=== PATIENT | female | born 1970 | race Hispanic/Latino ===

== ENCOUNTER 2020-04-03 23:31 | Emergency (ER) | payer SELFPAY ==
[~2020-04-03] VITALS: Ht 157.5 cm; Wt 145.1 kg
[2020-04-03] MEDS ORDERED: ONDANSETRON HCL 4 MG ORAL DISINTEGRATING TAB PO ONE (23:45)
[2020-04-03] MEDS ORDERED: ACETAMINOPHEN 325 MG TAB PO ONE (23:45)
--- NOTE | 2020-04-04 00:14 | Emergency Department Note ---
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 Historian: Patient Arrival Mode: Car Onset (how long ago): day(s) (7) Location: CHEST Quality: COUGH, HURTS TO BREATH, FEVER, CHILLS Severity: moderate Onset quality: gradual Duration (how long): day(s) (7) Timing of current episode: constant Progression: unchanged Context: Reports recent illness (COUGH, FEVER, CHILLS) Relieving factors: none Exacerbating factors: none Associated symptoms: Reports cough, Reports fever/chills Treatments prior to arrival: none Past Medical/Family History Physician Review I have reviewed the patient's past medical and family history. Any updates have been documented here. Past Medical History Recent Fever: Yes Clinical Suspicion of Infectio: Yes New/Unexplained Change in Ment: No Past Medical History: None Past Surgical History: Hysterectomy Social History Smoking Cessation: Never Smoker Alcohol Use: None Any Illegal Drug Use: No Review of Systems Review of Systems Constitutional: Reports as per HPI EENTM: Reports no symptoms Cardiovascular: Reports no symptoms Respiratory: Reports as per HPI Gastrointestinal: Reports no symptoms Genitourinary: Reports no symptoms Musculoskeletal: Reports no symptoms Integumentary: Reports no symptoms Neurological: Reports no symptoms Psychological: Reports no symptoms Endocrine: Reports no symptoms Hematological/Lymphatic: Reports no symptoms Physical Exam Related Data Allergies: Coded Allergies: No Known Allergies (Unverified , 04/03/20) Triage Vital Signs Vital Signs Date Time Temp Pulse Resp B/P (MAP) Pulse Ox O2 Delivery O2 Flow Rate FiO2 04/03/20 23:39 102.6 87 24 188/88 94 Room Air Vital signs reviewed: Yes Physical Exam CONSTITUTIONAL Constitutional: Present well-developed, Present well-nourished HENT HENT: Present normocephalic, Present atraumatic, Present oropharynx clear/moist, Present nose normal HENT L/R: Present left ext ear normal, Present right ext ear normal EYES Eyes: Reports PERRL, Reports conjunctivae normal NECK Neck: Present ROM normal PULMONARY Pulmonary: Present effort normal, Present rhonchi (FAINT AT BASES BILATERAL) CARDIOVASCULAR Cardiovascular: Present regular rhythm, Present heart sounds normal, Present capillary refill normal, Present normal rate GASTROINTESTINAL Abdominal: Present soft, Present nontender, Present bowel sounds normal GENITOURINARY Genitourinary: Present exam deferred SKIN Skin: Present warm, Present dry MUSCULOSKELETAL Musculoskeletal: Present ROM normal NEUROLOGICAL Neurological: Present alert, Present oriented x 3, Present no gross motor or sensory deficits PSYCHOLOGICAL Psychological: Present mood/affect normal, Present judgement normal Results Imaging Imaging results reviewed: Yes Impressions EXAMINATION: CHEST SINGLE (PORTABLE) INDICATION: Cough, fever COMPARISON: None FINDINGS: TUBES and LINES: None. LUNGS: Normal lung volumes. Patchy bilateral mid to lower lung haziness. PLEURA: No pleural effusion or pneumothorax. HEART AND MEDIASTINUM: The cardiomediastinal silhouette is unremarkable. BONES AND SOFT TISSUES: No acute osseous lesion. Soft tissues are unremarkable. UPPER ABDOMEN: No free air under the diaphragm. IMPRESSION: Findings compatible with multifocal viral pneumonia. Signed by: Carlton Chester DO on 04/04/2020 12:38 AM Assessment & Plan Medical Decision Making MDM PT WITH COVID SYMPTOMS CXR ORDERED TO EVAL FOR PNEUMONIA TYLENOL 975 MG PO ORDERED PT WITH PRESUMED COVID 19 DISCHARGED WITH [facility], INSTRUCTED ON 14 DAY SELF QUARANTINE, SLEEPING STOMACH OR SIDES BUT NOT ON BACK Reassessment Reassessment time: 01:49 Reassessment TEMP 99.1. PT FEELS BETTER, OXYGEN SATURATION 96% ON ROOM AIR, NO RESPIRATORY DISTRESS AT THIS TIME Assessment & Plan Final Impression: (1) COVID-19 (2) Viral pneumonia Depart Disposition: HOME, SELF-CARE Last Vital Signs Date Time Temp Pulse Resp B/P (MAP) Pulse Ox O2 Delivery O2 Flow Rate FiO2 04/03/20 23:39 102.6 87 24 188/88 94 Room Air Medications in the ED Ondansetron HCl 4 mg ONCE ONCE PO Last administered on 04/03/20at 23:51; Admin Dose 4 MG; Start 04/03/20 at 23:45; Stop 04/04/20 at 00:06; Status DC Acetaminophen 975 mg ONCE ONCE PO Last administered on 04/03/20at 23:51; Admin Dose 975 MG; Start 04/03/20 at 23:45; Stop 04/04/20 at 00:06; Status DC YOSELYN WRIGHT MD Apr 04, 2020 00:14
--- NOTE | 2020-04-04 00:42 | Diagnostic Imaging Report ---
EXAMINATION: CHEST SINGLE (PORTABLE) INDICATION: Cough, fever COMPARISON: None FINDINGS: TUBES and LINES: None. LUNGS: Normal lung volumes. Patchy bilateral mid to lower lung haziness. PLEURA: No pleural effusion or pneumothorax. HEART AND MEDIASTINUM: The cardiomediastinal silhouette is unremarkable. BONES AND SOFT TISSUES: No acute osseous lesion. Soft tissues are unremarkable. UPPER ABDOMEN: No free air under the diaphragm. IMPRESSION: Findings compatible with multifocal viral pneumonia. Signed by: Carlton Chester DO on 04/04/2020 12:38 AM
== END 2020-04-04 01:50 | disposition home or self-care (01) ==
LOC: ER 23:50
DX: U07.1 COVID-19 (principal); J12.9 Viral pneumonia, unspecified; R50.9 Fever, unspecified; R06.02 Shortness of breath; R05 Cough
CPT/HCPCS: 71045; 99283; Q0162

== ENCOUNTER 2020-04-05 23:27 | Emergency (ER) | payer SELFPAY ==
[~2020-04-05] VITALS: Ht 157.5 cm; Wt 145.1 kg
[2020-04-05] MEDS ORDERED: ACETAMINOPHEN 325 MG TAB PO ONE (23:45)
[2020-04-05] MEDS ORDERED: AZITHROMYCIN 500MG/NS 250 ML 250 ML IV ONE (23:45)
[2020-04-05] MEDS ORDERED: DEXAMETHASONE SOD PHOS 10 MG/1 ML VIAL IV ONE (23:45)
[2020-04-05] MEDS ORDERED: CEFTRIAXONE SOD 1 GM/NS 50 ML 50 ML IV ONE (23:45)
--- NOTE | 2020-04-05 23:47 | Emergency Department Note ---
History of Present Illnes History of Present Illness Chief Complaint: COVID PUI History of Present Illness This is a 49 year old female PATIENT COMES BACK TO ED AFTER DISCHARGE FROM THIS FACILITY 2 EDAYS FOR COVID SUSPECT DIAGNOSIS. COMES THIS EVENING FOR INCREASED SHORTNESS OF BREATH AND FEVER. PER EMS PT WITH OXYGEN SATURATION OF 86% ON ROOM AIR. PLACED ON 6 LITERS O2 VIA NC AND OXIYGEN SATURATION NOW 93%. Historian: Patient, Supervisor Production Department/EMS Onset (how long ago): day(s) (14) Location: CHEST Quality: SOB, COUGH, FEVER Severity: moderate Onset quality: gradual Duration (how long): week(s) (2) Timing of current episode: constant Progression: worsening Chronicity: recurrent Context: Reports recent illness (COVID 19) Relieving factors: none Exacerbating factors: movement Associated symptoms: Reports cough, Reports fever/chills, Reports malaise, Reports shortness of breath Past Medical/Family History Physician Review I have reviewed the patient's past medical and family history. Any updates have been documented here. Past Medical History Recent Fever: Yes Clinical Suspicion of Infectio: Yes New/Unexplained Change in Ment: No Past Medical History: None Past Surgical History: Hysterectomy Social History Alcohol Use: None Any Illegal Drug Use: No Family History Family history of heart diseas: No Review of Systems Review of Systems Constitutional: Reports as per HPI EENTM: Reports no symptoms Cardiovascular: Reports no symptoms Respiratory: Reports as per HPI Gastrointestinal: Reports no symptoms Genitourinary: Reports no symptoms Musculoskeletal: Reports no symptoms Integumentary: Reports no symptoms Neurological: Reports no symptoms Psychological: Reports no symptoms Endocrine: Reports no symptoms Hematological/Lymphatic: Reports no symptoms Physical Exam Related Data Allergies: Coded Allergies: No Known Allergies (Unverified , 04/03/20) Triage Vital Signs Vital Signs Date Time Temp Pulse Resp B/P (MAP) Pulse Ox O2 Delivery O2 Flow Rate FiO2 04/05/20 23:33 102.7 103 33 167/91 94 Nasal Cannula 4.0 Vital signs reviewed: Yes Physical Exam CONSTITUTIONAL Constitutional: Present well-developed, Present well-nourished, Present distressed (MILD) HENT HENT: Present normocephalic, Present atraumatic, Present oropharynx clear/moist, Present nose normal HENT L/R: Present left ext ear normal, Present right ext ear normal EYES Eyes: Reports PERRL, Reports conjunctivae normal NECK Neck: Present ROM normal PULMONARY Pulmonary: Present effort normal, Present respiratory distress (MILD TACYPHNEA), Present rhonchi (THROUGHOUT) CARDIOVASCULAR Cardiovascular: Present regular rhythm, Present heart sounds normal, Present capillary refill normal, Present normal rate GASTROINTESTINAL Abdominal: Present soft, Present nontender, Present bowel sounds normal GENITOURINARY Genitourinary: Present exam deferred SKIN Skin: Present warm, Present dry MUSCULOSKELETAL Musculoskeletal: Present ROM normal NEUROLOGICAL Neurological: Present alert, Present oriented x 3, Present no gross motor or sensory deficits PSYCHOLOGICAL Psychological: Present mood/affect normal, Present judgement normal Results Laboratory Laboratory Laboratory Tests Test 04/05/20 23:58 White Blood Count 15.19 x10e3/uL (4.8-10.8) Red Blood Count 5.02 x10e6/uL (3.6-5.1) Hemoglobin 12.7 g/dL (12.0-16.0) Hematocrit 40.1 % (34.2-44.1) Mean Corpuscular Volume 79.9 fL (81-99) Mean Corpuscular Hemoglobin 25.3 pg (28-32) Mean Corpuscular Hemoglobin Concent 31.7 g/dL (31-35) Red Cell Distribution Width 14.0 % (11.7-14.4) Platelet Count 248 x10e3/uL (140-360) Neutrophils (%) (Auto) 84.5 % (38.7-80.0) Lymphocytes (%) (Auto) 10.3 % (18.0-39.1) Monocytes (%) (Auto) 4.1 % (4.4-11.3) Eosinophils (%) (Auto) 0.0 % (0.0-6.0) Basophils (%) (Auto) 0.1 % (0.0-1.0) Neutrophils # (Auto) 12.8 (2.1-6.9) Lymphocytes # (Auto) 1.6 (1.0-3.2) Monocytes # (Auto) 0.6 (0.2-0.8) Eosinophils # (Auto) 0.0 (0.0-0.4) Basophils # (Auto) 0.0 (0.0-0.1) Absolute Immature Granulocyte (auto 0.15 x10e3/uL (0-0.1) Sodium Level 137 mmol/L (136-145) Potassium Level 3.8 mmol/L (3.5-5.1) Chloride Level 103 mmol/L (98-107) Carbon Dioxide Level 25 mmol/L (22-29) Anion Gap 12.8 mmol/L (8-16) Blood Urea Nitrogen 13 mg/dL (7-26) Creatinine 0.71 mg/dL (0.57-1.11) Estimat Glomerular Filtration Rate > 60 ML/MIN (60-) BUN/Creatinine Ratio 18 (6-25) Glucose Level 126 mg/dL (74-118) Calcium Level 8.6 mg/dL (8.4-10.2) Total Bilirubin 0.9 mg/dL (0.2-1.2) Aspartate Amino Transf (AST/SGOT) 38 IU/L (5-34) Alanine Aminotransferase (ALT/SGPT) 77 IU/L (0-55) Alkaline Phosphatase 109 IU/L (40-150) Creatine Kinase 42 IU/L (29-168) Creatine Kinase MB 0.30 ng/mL (0-5.0) Troponin I 0.008 ng/mL (0-0.300) Total Protein 7.3 g/dL (6.5-8.1) Albumin 2.8 g/dL (3.5-5.0) Globulin 4.5 g/dL (2.3-3.5) Albumin/Globulin Ratio 0.6 (0.8-2.0) Lab results reviewed: Yes Imaging Imaging results reviewed: Yes Impressions Procedure: [id number] DX/CHEST SINGLE (PORTABLE) Exam Date: 04/06/20 Exam Time: 0115 REPORT STATUS: Signed EXAMINATION: CHEST SINGLE (PORTABLE) INDICATION: Short of breath, fever, covid + COMPARISON: Chest x-ray 04/04/2020 FINDINGS: TUBES and LINES: None. LUNGS: Normal lung volumes. Multifocal patchy airspace opacities, worse compared to 04/04/2020. PLEURA: No pleural effusion or pneumothorax. HEART AND MEDIASTINUM: The cardiomediastinal silhouette is unremarkable. BONES AND SOFT TISSUES: No acute osseous lesion. Soft tissues are unremarkable. UPPER ABDOMEN: No free air under the diaphragm. IMPRESSION: Worsening severity of multifocal pneumonia. Signed by: Zheng Chester DO on 04/06/2020 1:45 AM Dictated By: ZHENG CHESTER DO 4 Transcribed By: RENY on 04/06/20144 Procedures 12 Lead ECG Interpretation ECG Interpretation : ECG: ECG 1 Tongue Carrier: Interpreted by ED physician Date: Apr 05, 2020 Time: 23:55 Rhythm: sinus rhythm Rate: normal BPM: 90 QRS axis: normal ST segments normal: Yes T waves normal: Yes Clinical Impression: non-specific ECG Additional Comments MOTION ARTIFACT PRESENT Assessment & Plan Medical Decision Making MDM PT WITH COVID 19 AND NOW WITH HYPOXIA PT PLACED ON 02 6LPM VIA NC CBC, CMP, EKG, CXR, BLOOD CULTURES ORDERED ROCEPHIN 1 GRAM IV ORDERED ZITHROMAX 500 MG IV ORDERED DEXAMETHASONE 6 MG IV ORDERED [address] LEWIS PENDING COVID 19 RESULT, ADMISSION TO A COVID PUI BED WHICH IS NOT AVAILABLE AT THIS FACILITY AT THIS TIME OR TRANSFER TO ANOTHER FACILITY WITH A COVID PUI BED Assessment & Plan Final Impression: (1) Hypoxia (2) Fever (3) Viral pneumonia (4) COVID-19 Last Vital Signs Date Time Temp Pulse Resp B/P (MAP) Pulse Ox O2 Delivery O2 Flow Rate FiO2 04/05/20 23:33 102.7 103 33 167/91 94 Nasal Cannula 4.0 Medications in the ED Acetaminophen 975 mg ONCE ONCE PO ; Start 04/05/20 at 23:45; Stop 04/05/20 at 23:46 Ceftriaxone Sodium 50 ml @ 100 mls/hr ONCE ONCE IV ; Start 04/05/20 at 23:45; Stop 04/06/20 at 00:14 Azithromycin 250 ml @ 200 mls/hr NOW ONCE IV ; Start 04/05/20 at 23:45; Stop 04/06/20 at 00:59 Dexamethasone Sodium Phosphate 6 mg ONCE ONCE IV ; Start 04/05/20 at 23:45; Stop 04/05/20 at 23:46 YOSELYN WRIGHT MD Apr 05, 2020 23:47
[2020-04-06 00:17] LABS: BASOPHILS % 0.1 % (0.0-1.0); HEMATOCRIT 40.1 % (34.2-44.1); HEMOGLOBIN 12.7 g/dL (12.0-16.0); LYMPHOCYTES # (AUTO) 1.6 (1.0-3.2); LYMPHOCYTES % 10.3 % (18.0-39.1); MEAN CORPUSCULAR HEMOGLOBIN 25.3 pg (28-32); MEAN CORPUSCULAR HGB CONC 31.7 g/dL (31-35); MEAN CORPUSCULAR VOLUME 79.9 fL (81-99); MONOCYTES # (AUTO) 0.6 (0.2-0.8); MONOCYTES % 4.1 % (4.4-11.3); NEUTROPHILS # (AUTO) 12.8 (2.1-6.9); NEUTROPHILS % 84.5 % (38.7-80.0); PLATELET COUNT 248 x10e3/uL (140-360); RED BLOOD COUNT 5.02 x10e6/uL (3.6-5.1)
[2020-04-06 00:40] LABS: ALANINE AMINOTRANSFERASE 77 IU/L (0-55); ALBUMIN 2.8 g/dL (3.5-5.0); ALBUMIN/GLOBULIN RATIO 0.6 (0.8-2.0); ALKALINE PHOSPHATASE 109 IU/L (40-150); ANION GAP 12.8 mmol/L (8-16); BLOOD UREA NITROGEN 13 mg/dL (7-26); BUN/CREATININE RATIO 18 (6-25); CALCIUM 8.6 mg/dL (8.4-10.2); CARBON DIOXIDE 25 mmol/L (22-29); CHLORIDE 103 mmol/L (98-107); CREATINE KINASE 42 IU/L (29-168); CREATININE, SERUM 0.71 mg/dL (0.57-1.11); EST GLOMERULAR FILTRATION RATE > 60 ML/MIN (60-); GLUCOSE 126 mg/dL (74-118); POTASSIUM 3.8 mmol/L (3.5-5.1); SODIUM 137 mmol/L (136-145)
--- NOTE | 2020-04-06 01:49 | Diagnostic Imaging Report ---
EXAMINATION: CHEST SINGLE (PORTABLE) INDICATION: Short of breath, fever, covid + COMPARISON: Chest x-ray 04/04/2020 FINDINGS: TUBES and LINES: None. LUNGS: Normal lung volumes. Multifocal patchy airspace opacities, worse compared to 04/04/2020. PLEURA: No pleural effusion or pneumothorax. HEART AND MEDIASTINUM: The cardiomediastinal silhouette is unremarkable. BONES AND SOFT TISSUES: No acute osseous lesion. Soft tissues are unremarkable. UPPER ABDOMEN: No free air under the diaphragm. IMPRESSION: Worsening severity of multifocal pneumonia. Signed by: Carlton Chester DO on 04/06/2020 1:45 AM
[2020-04-06] MEDS ORDERED: ACETAMINOPHEN 325 MG TAB PO PRN (05:45)
[2020-04-06] MEDS ORDERED: AZITHROMYCIN 500MG/NS 250 ML 250 ML IV SCH (05:45)
[2020-04-06] MEDS ORDERED: CEFTRIAXONE SOD 1 GM/NS 50 ML 50 ML IV SCH (05:45)
--- NOTE | 2020-04-06 06:49 | NUR ---
WALKING ROUNDS WITH MIRELLA DEE
--- NOTE | 2020-04-06 06:50 | NUR ---
RECEIVED REPORT FROM OFF GOING NURSE. PATIENT IN ROOM IN BED. NO S/S OF ACUTE DISTRESS. PENDING TRANSFER.
--- NOTE | 2020-04-06 07:54 | NUR ---
MD AND NURSE SPOKE WITH PT ABOUT TRANSFER TO ANOTHER FACILITY INFORMED PT BED WAS AVAILABLE IN [place] TRIED TO FIND HOSP IN [facility] WITH NO SUCCESS PT STATES SHE IS OK WITH GOING TO [place], [place] EXPLAINED THE RISKS/BENEFITS OF BEING TRANSPORTED AND NEED FOR CONTINUING CARE DUE TO PT NEEDING SUPPLEMENTAL O2 TO MAINTAIN O2 SAT PT STATES SHE UNDERSTANDS AND IS WILLING TO DO WHATEVER IS NECESSARY TO GET BETTER AND IS ABLE TO GET A RIDE HOME FROM [place], [place] WHEN SHE IS D/C'D FROM THERE PT GIVEN OPPORTUNITY TO ASK MD QUESTIONS STATES SHE HAS NO QUESTIONS AT THIS TIME
[2020-04-06] MEDS ORDERED: ALBUTEROL SULFATE HFA 8GM INHALATION AEROSOL INH PRN (08:30)
== END 2020-04-06 13:00 | disposition short-term general hospital (02) ==
LOC: ER 23:55
DX: U07.1 COVID-19 (principal); J12.9 Viral pneumonia, unspecified; R50.9 Fever, unspecified; R05 Cough; R09.02 Hypoxemia
CPT/HCPCS: 36415; 71045; 80053; 82550; 82553; 84484; 85025; 87040; 99285; J0456; J0696; U0002

== ENCOUNTER 2025-03-12 11:28 | Emergency (ER) | payer OTHER ==
[~2025-03-12] VITALS: Ht 157.5 cm; Wt 106.2 kg
[2025-03-12] MEDS ORDERED: ACETAMINOPHEN 325 MG TAB ONE (12:36)
[2025-03-12] MEDS ORDERED: AMLODIPINE BESYLATE 5 MG TAB ONE (12:36)
[2025-03-12] MEDS: AMLODIPINE BESYLATE 5 MG TAB PO ONE (12:39)
[2025-03-12] MEDS: ACETAMINOPHEN 325 MG TAB PO ONE (12:40)
[2025-03-12 13:17] VITALS: PULSE 60; RESP 16; TEMP 98.1; O2SAT 96
[2025-03-12] MEDS: HYDRALAZINE HCL 20 MG/ML VIAL IV ONE (13:38)
[2025-03-12] MEDS ORDERED: VALTREX1000 MG PO (14:35)
[2025-03-12] MEDS ORDERED: ULTRAM 50MG50 MG PO (14:36)
[2025-03-12 14:51] VITALS: BP 192/81
== END 2025-03-12 14:48 | disposition home or self-care (01) ==
LOC: FSED 11:32
DX: B02.9 Zoster without complications (principal); R07.89 Other chest pain; I10 Essential (primary) hypertension
CPT/HCPCS: 71046; 80053; 81003; 84484; 85025; 85379; 93005; 99283; J0360